=== PATIENT | female | born 1955 | race Caucasian/White ===

== ENCOUNTER 2022-09-14 20:41 | Emergency (ER) | payer BC ==
[2022-09-14 20:58] VITALS: RESP 18; TEMP 98.2; BMI 26.4
[2022-09-14] MEDS ORDERED: ONDANSETRON 4 MG/2 ML VIAL IVPUSH ONE (21:09)
[2022-09-14] MEDS ORDERED: SODIUM CHLORIDE 0.9% 500 ML INFUS.BAG IV ONE (21:11)
[2022-09-14] MEDS ORDERED: FOLIC ACID 1 MG TABLET (FP) PO ONE (21:11)
[2022-09-14] MEDS ORDERED: THIAMINE HCL 100 MG TABLET (FP) PO ONE (21:11)
[2022-09-14] MEDS ORDERED: MULTIVITAMINS (DAILY MVI) TABLET (FP) PO ONE (21:11)
[2022-09-14] MEDS ORDERED: ONDANSETRON 4 MG/2 ML VIAL ONE (21:26)
[2022-09-14 22:01] LABS: BASO % 0.3 % (0-2.0); EOS % 0.3 % (0-4.5); HEMOGLOBIN 13.3 GM/dL (10.7-15.3); LYMPH % 14.1 % (8-40); MCH 29.4 pg (25.7-33.7); MCHC 33.2 g/dl (32.0-36.0); MEAN CELL VOLUME 88.7 fl (80-96); MEAN PLT VOLUME 9.1 fl (7.5-11.1); MONO % 2.7 % (3.8-10.2); NEUT % 82.6 % (42.8-82.8); PLATELET COUNT 259 10^3/uL (134-434); RBC 4.51 M/mm3 (3.60-5.2); RDW 13.2 % (11.6-15.6); WHITE BLOOD COUNT 9.5 K/mm3 (4.0-10.0)
[2022-09-14 22:29] LABS: CALCIUM 9.8 mg/dL (8.5-10.1)
[2022-09-14 22:30] LABS: ALBUMIN 4.1 g/dl (3.4-5.0); BLOOD UREA NITROGEN 10.9 mg/dL (7-18); MAGNESIUM 1.6 mg/dL (1.8-2.4)
[2022-09-14 22:33] LABS: CREATININE 0.7 mg/dL (0.55-1.3)
[2022-09-14 22:34] LABS: TOT PROT 8.3 g/dl (6.4-8.2)
[2022-09-14] MEDS ORDERED: MAGNESIUM SULF 50% (8.12 MEQ/2 ML-1 GM VIAL) IVPB ONE (22:36)
[2022-09-14 23:21] LABS: BILIRUBIN,TOTAL 0.5 mg/dL (0.2-1)
[2022-09-15 00:09] LABS: PROTHROMBIN TIME (PATIENT) 11.5 SEC (9.7-13.0)
[2022-09-15 00:12] LABS: ACTIVATED PTT 26.2 SECONDS (25.2-36.5)
[2022-09-15] MEDS ORDERED: MAGNESIUM 1GM/D5W - 1 GM/100 ML IVPB IVPB ONE (00:49)
[2022-09-15 02:05] VITALS: BP 117/65; PULSE 82
== END 2022-09-15 02:15 | disposition short-term general hospital (02) ==
LOC: JER 20:41
PROC: 3E033GC Introduction of Other Therapeutic Substance into Peripheral Vein, Percutaneous Approach (ICD-10-PCS; principal; 2022-09-14)
PROC: 3E033GC Introduction of Other Therapeutic Substance into Peripheral Vein, Percutaneous Approach (ICD-10-PCS; 2022-09-14)
DX: S06.5X0A Traumatic subdural hemorrhage without loss of consciousness, initial encounter (principal); S06.360A Traumatic hemorrhage of cerebrum, unspecified, without loss of consciousness, initial encounter; R55 Syncope and collapse; W01.0XXA Fall on same level from slipping, tripping and stumbling without subsequent striking against object, initial encounter
CPT/HCPCS: 0241U-QW; 36415; 70450-TC; 71045-TC-FY; 72125-TC; 80053; 83690; 83735; 84484; 85025; 85610; 85730; 86850; 86900; 86901; 93005; 93010; 99285-25

== ENCOUNTER → 2023-01-05 | Day surgery (SDC) | payer OTHER, BC | END | disposition home or self-care (01) | LOC: FMAMMOTONE 10:07 | PROVIDERS: ATTEND Family Medicine | PROC: 0HBT3ZX Excision of Right Breast, Percutaneous Approach, Diagnostic (ICD-10-PCS; principal; 2023-01-05) | DX: N60.11 Diffuse cystic mastopathy of right breast (principal); N60.81 Other benign mammary dysplasias of right breast; N64.89 Other specified disorders of breast | CPT/HCPCS: 19081; 88305-TC; 88341-TC; 88342-TC; A4648 ==